=== PATIENT | female | born 1955 | race Caucasian/White ===

== ENCOUNTER 2020-09-08 08:58 | Emergency (ER) | payer MEDICAID ==
[~2020-09-08] VITALS: Ht 152.4 cm; Wt 193.4 kg
[2020-09-08] MEDS ORDERED: IBUP-1222 PO (09:24)
[2020-09-08] MEDS ORDERED: OMEP-110 PO (09:24)
[2020-09-08] MEDS ORDERED: ASPI81TA45 PO (09:24)
[2020-09-08] MEDS ORDERED: TRAZ150T62 PO (09:24)
[2020-09-08] MEDS ORDERED: BUSP15TA PO (09:24)
[2020-09-08] MEDS ORDERED: CALC1TAB78 PO (09:24)
[2020-09-08] MEDS ORDERED: GLUC1TAB35 PO (09:24)
[2020-09-08] MEDS ORDERED: MIRT15TA3 PO (09:24)
[2020-09-08] MEDS ORDERED: CITA40TA5 PO (09:24)
[2020-09-08] MEDS ORDERED: LEVO50TA5 PO (09:24)
[2020-09-08] MEDS ORDERED: ATOR40TA78 PO (09:24)
[2020-09-08] MEDS ORDERED: SODIUM CHLORIDE 0.9% 1,000ML IVBOLUS ONE (09:30)
[2020-09-08] MEDS ORDERED: LORazepam 2 MG/ML, 1ML IVPush ONE (09:30)
[2020-09-08 09:37] LABS: BASOPHILS % (AUTO) 0 % (0-1); EOSINOPHILS % (AUTO) 0 % (1-7); LYMPHOCYTES % (AUTO) 2 % (22-44); MEAN CORPUSCULAR HGB CONC 31.3 g/dL (32.4-35.8); MEAN PLATELET VOLUME 6.5 fL (7.4-10.4); MONOCYTES % (AUTO) 5 % (2-9); NEUTROPHILS % (AUTO) 93 % (42-75); PLATELET COUNT 281 x10^3/uL (130-400); RED BLOOD COUNT 5.02 x10^6/uL (3.82-5.3); RED CELL DISTRIBUTION WIDTH 16.7 % (9.6-15.2)
--- NOTE | 2020-09-08 09:40 | NUR ---
PT TO CT. 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 PT MEDICATED/MAR PRIOR TO CT.
--- NOTE | 2020-09-08 09:40 | NUR ---
PT HAVING MULTIPLE EPISODE OF EMESIS. JULIO AREA CLEANED AND PUREWICK PLACED. JULIO AREA AND PANNUS ARE RED AND IRRITATED. ALL AREAS CLEANED. INTER DRY PLACED TO PANNUS. PT CHANGED TO NC AT 6L SPO2 >95%. PROVIDER UPDATED.
[2020-09-08 09:44] LABS: ALANINE AMINOTRANSFERASE 17 U/L (12-78); ALBUMIN 3.4 g/dL (3.4-5.0); ANION GAP 3 mmol/L (5-15); CALCIUM 8.3 mg/dL (8.5-10.1); CHLORIDE 105 mmol/L (98-107)
[2020-09-08] MEDS ORDERED: LORazepam 2 MG/ML, 1ML ONE (09:46)
[2020-09-08 09:49] LABS: ALKALINE PHOSPHATASE 141 U/L (45-117); BILIRUBIN,TOTAL 0.7 mg/dL (0.2-1.0)
[2020-09-08 09:57] LABS: MD SCAN
[2020-09-08] MEDS ORDERED: OMNIPAQUE 350 MG/ML, 100ML BOTTLE ONE (10:10)
--- NOTE | 2020-09-08 10:10 | NUR ---
PT BACK FROM CT.
[2020-09-08] MEDS ORDERED: CEFTRIAXONE PMX 1GM/50ML 50 ML IV ONE (11:00)
[2020-09-08] MEDS ORDERED: CEFTRIAXONE PMX 1GM/50ML 50 ML ONE (11:05)
--- NOTE | 2020-09-08 12:24 | NUR ---
PT SLEEPING. SPO2 88%. PT USES CPAP AT HOME. O2 INCREASED TO 6L SPO2 94%.
[2020-09-08 12:26] LABS: MICROSCOPIC INDICATED
--- NOTE | 2020-09-08 13:11 | NUR ---
SPOKE WITH PT'S DTR. NOBODY CAN COME TO PICK PT UP FROM [facility]. SUP NOTIFIED.
[2020-09-08 13:21] VITALS: BP 143/56
== END 2020-09-08 14:08 | disposition home or self-care (01) ==
LOC: ED 11:12
DX: J18.0 Bronchopneumonia, unspecified organism (principal); Z20.828 Contact with and (suspected) exposure to other viral communicable diseases; N30.00 Acute cystitis without hematuria; D72.829 Elevated white blood cell count, unspecified; E66.01 Morbid (severe) obesity due to excess calories; Z72.9 Problem related to lifestyle, unspecified; Z68.45 Body mass index [BMI] 70 or greater, adult; E03.9 Hypothyroidism, unspecified; I10 Essential (primary) hypertension; K21.9 Gastro-esophageal reflux disease without esophagitis; Z90.49 Acquired absence of other specified parts of digestive tract
CPT/HCPCS: 36415; 71045; 74177; 80053; 81001; 83690; 83880; 85025; 87086; 87635; 93005; 96361; 96365; 96375; 99285; J0696; J2060; J7030; Q9967